=== PATIENT | female | born 1970 | race American Indian/Alaskan Native ===

== ENCOUNTER 2020-07-07 09:25 | Outpatient (CLI) | payer OTHER | END 2020-07-07 09:26 | disposition home or self-care (01) | LOC: SPVWC 09:25 | PROVIDERS: ATTEND Family Medicine | DX: Z12.31 Encounter for screening mammogram for malignant neoplasm of breast (principal) | CPT/HCPCS: 77067 ==

== ENCOUNTER 2021-03-12 11:29 | Emergency (ER) | payer OTHER ==
--- NOTE | 2021-03-12 13:40 | Event Note ---
ED Screening Note Date of service: 03/12/21 Time: 13:39 ED Screening Note: Patient presents with complaints of right arm numbness, shortness of breath, and intermittent slurred speech. She states her symptoms started 4 days ago. She reports associated generalized weakness, dizziness, headache and nausea. Past medical history significant for hypertension and diabetes. This initial assessment/diagnostic orders/clinical plan/treatment(s) is/are subject to change based on patients health status, clinical progression and re- assessment by fellow clinical providers in the ED. Further treatment and workup at subsequent clinical providers discretion. Patient/guardian urged not to elope from the ED as their condition may be serious if not clinically assessed and managed. Initial orders include: Head CT including chest pain order set
[2021-03-12 14:34] LABS: Basophils # (Auto) 0.1 K/mm3 (0.0-0.1); Basophils % (Auto) 1.4 % (0.0-1.8); Eosinophils # (Auto) 0.1 K/mm3 (0.0-0.4); Eosinophils % (Auto) 1.1 % (0.0-4.3); Hematocrit 42.6 % (30.3-42.9); Hemoglobin 14.6 gm/dl (10.1-14.3); Lymphocytes # (Auto) 3.1 K/mm3 (1.2-5.4); Lymphocytes % (Auto) 44.3 % (13.4-35.0); Mean Corpuscular HGB Conc 34 % (30-34); Mean Corpuscular Volume 87 fl (79-97); Monocytes # (Auto) 0.5 K/mm3 (0.0-0.8); Monocytes % (Auto) 6.7 % (0.0-7.3); Platelet Count 362 K/mm3 (140-440); Red Blood Count 4.92 M/mm3 (3.65-5.03); Red Cell Distribution Width 13.6 % (13.2-15.2)
--- NOTE | 2021-03-12 14:41 | XRay Report ---
CHEST 2 VIEWS INDICATION / CLINICAL INFORMATION: Chest Pain. COMPARISON: 06/23/2013 FINDINGS: SUPPORT DEVICES: None. HEART / MEDIASTINUM: No significant abnormality. LUNGS / PLEURA: No significant pulmonary or pleural abnormality. No pneumothorax. ADDITIONAL FINDINGS: No significant additional findings. IMPRESSION: 1. No acute findings. Signer Name: Jeancarlos Ramirez MD Signed: 03/12/2021 2:36 PM Workstation Name: [id number]
[2021-03-12 14:46] LABS: INR 0.93 (0.87-1.13)
[2021-03-12 14:47] LABS: Partial Thromboplastin Time 29.1 Sec. (24.2-36.6)
[2021-03-12 14:49] LABS: Alanine Aminotransferase 19 units/L (7-56); Albumin 4.4 g/dL (3.9-5); BUN/Creatinine Ratio 18; Blood Urea Nitrogen 11 mg/dL (7-17); Calcium 9.6 mg/dL (8.4-10.2); Hemolysis Index 4
--- NOTE | 2021-03-12 15:19 | Cat Scan Report ---
CT head/brain wo con INDICATION / CLINICAL INFORMATION: 51 years Female; Headache/slurred speech/right arm numb SINCE SUNDAY. TECHNIQUE: Routine CT head without contrast. All CT scans at this location are performed using CT dos e reduction for ALARA by means of automated exposure control. COMPARISON: None. FINDINGS: BRAIN / INTRACRANIAL CONTENTS: The brain appears to demonstrate appropriate attenuation for age. The particular system is within normal limits in size and configuration. There is no clear CT evidence of acute intracranial hemorrhage or significant mass effect. ORBITS: No significant abnormality of visualized orbits. SINUSES / MASTOIDS: No significant abnormality in the visualized paranasal sinuses or mastoid air max ls. CRANIOCERVICAL JUNCTION: No significant abnormality. ADDITIONAL FINDINGS: None. IMPRESSION: 1. There is no CT evidence of acute intracranial process. Signer Name: Rohit Rivera MD Signed: 03/12/2021 3:14 PM Workstation Name: [id number]
--- NOTE | 2021-03-12 21:46 | Emergency Department Report ---
ED Neuro Deficit HPI - General Chief Complaint: Neuro Symptoms/Deficit Stated Complaint: BLOOD PRESSURE/RT ARM NUMB/SOB Time Seen by Provider: 03/12/21 17:33 Source: patient Mode of arrival: Ambulatory Limitations: No Limitations - History of Present Illness Initial Comments: Patient is a 51-year-old female who presents emergency room with complaints of headache, dizziness, elevated blood pressure, shortness of breath, nausea, and right arm numbness. Patient states that presents been going on for 4 days. Patient states her symptoms are worsening. Patient states that her blood pressure is continued to go up. Patient states it is more of her diastolic number that is elevated. Patient states that her dizziness, arm numbness, headache and shortness of breath are better with rest and worse with exertion and movement. Patient denies chest pain. Patient denies diaphoresis. Patient denies blurry vision. Patient denies neck stiffness. Patient denies fever and chills. Patient states she is feeling much better than when she arrived. Patient denies slurred speech. Patient denies falls. Patient denies loss of control of her limbs. Patient denies vomiting. Patient states she has a past medical history of hypertension, diabetes, hepat itis, GERD. Patient states she is compliant with most of her blood pressure medication however she missed her Lasix for the last few days because it makes her pee too much and she does not like to take Lasix on days she works.. Patient denies recent travel. Patient denies recent international travel. Patient denies exposure to the novel coronavirus. Patient denies sick contacts. Patient denies fever and chills. Patient denies cough. Patient denies diarrhea. Patient denies coming in contact with anybody with symptoms of the novel coronavirus. -: Sudden History of same: No Place: home Severity: moderate Quality: constant Improves With: rest Worsens With: other On Anticoagulants: No Context: sudden onset Associated Symptoms: headaches, shortness of breath. denies: confusion, chest pain, cough, diaphoresis, fever/chills, loss of appetite, malise, seizures - Related Data Home Medications: Home Medications Medication Instructions Recorded Confirmed Last Taken Lisinopril/Hydrochlorothiazide 1 each PO 06/22/13 06/22/13 06/22/13 [Zestoretic 10-12.5 mg] Previous Rx's Medication Instructions Recorded Last Taken Type Acetaminophen/Codeine [Tylenol #3] 1 tab PO Q4HR PRN #30 tablet 06/28/13 Unknown Rx Ibuprofen [Motrin] 800 mg PO Q8H PRN #20 tablet 02/10/15 Unknown Rx Penicillin Vk [Veetids TAB] 500 mg PO Q8H #30 tablet 02/10/15 Unknown Rx Allergies/Adverse Reactions: Allergies Allergy/AdvReac Type Severity Reaction Status Date / Time No Known Allergies Allergy Verified 02/10/15 15:20 ED Review of Systems ROS: Stated complaint: BLOOD PRESSURE/RT ARM NUMB/SOB Other details as noted in HPI Constitutional: denies: chills, fever Eyes: denies: eye pain, eye discharge, vision change ENT: denies: ear pain, throat pain Respiratory: shortness of breath. denies: cough, wheezing Cardiovascular: denies: chest pain, palpitations Endocrine: no symptoms reported Gastrointestinal: denies: abdominal pain, nausea, diarrhea Genitourinary: denies: urgency, dysuria, discharge Musculoskeletal: denies: back pain, joint swelling, arthralgia Skin: denies: rash, lesions Neurological: as per HPI, headache. denies: weakness, paresthesias Psychiatric: denies: anxiety, depression Hematological/Lymphatic: denies: easy bleeding, easy bruising ED Past Medical Hx - Past Medical History Previous Medical History?: Yes Hx Hypertension: Yes Hx Diabetes: Yes Hx GERD: Yes Hx Liver Disease: Yes (Hepatitis) - Surgical History Past Surgical History?: Yes Hx Cholecystectomy: Yes Additional Surgical History: - Family History Family history: no significant - Social History Smoking Status: Never Smoker Substance Use Type: None - Medications Home Medications: Home Medications Medication Instructions Recorded Confirmed Last Taken Type Lisinopril/Hydrochlorothiazide 1 each PO 06/22/13 06/22/13 06/22/13 History [Zestoretic 10-12.5 mg] Acetaminophen/Codeine [Tylenol #3] 1 tab PO Q4HR PRN #30 tablet 06/28/13 Unknown Rx Ibuprofen [Motrin] 800 mg PO Q8H PRN #20 tablet 02/10/15 Unknown Rx Penicillin Vk [Veetids TAB] 500 mg PO Q8H #30 tablet 02/10/15 Unknown Rx ED Neuro Physical Exam - General Limitations: No Limitations General appearance: alert, in no apparent distress Suspected Stroke: No - Head Head exam: Present: atraumatic, normocephalic - Eye Eye exam: Present: normal appearance, PERRL Pupils: Present: normal accommodation - ENT ENT exam: Present: mucous membranes moist - Neck Neck exam: Present: normal inspection - Respiratory Respiratory exam: Present: normal lung sounds bilaterally. Absent: respiratory distress, wheezes, rales - Cardiovascular Cardiovascular Exam: Present: regular rate, normal rhythm. Absent: systolic murmur, diastolic murmur, rubs, gallop - GI/Abdominal GI/Abdominal exam: Present: soft, normal bowel sounds - Extremities Exam Extremities exam: Present: normal inspection - Back Exam Back exam: Present: normal inspection - Neurological Exam Neurological exam: Present: alert, oriented X3, CN II-XII intact, normal gait - NIHSS Assessment Interval: Baseline 1a. Level of Consciousness: alert/keenly responsive 1b. LOC Questions: answers both correctly 1c. LOC Commands: performs tasks correctly 2. Best Gaze: normal 3. Visual: no visual loss 4. Facial Palsy: normal symmetrical movement 5b. Motor Arm Right: no drift 5a. Motor Arm Left: no drift 6a. Motor Leg Left: no drift 6b. Motor Leg Right: no drift 7. Limb Ataxia: absent 8. Sensory: normal 9. Best Language: no aphasia 10. Dysarthria: normal 11. Extinction/Inattention: no abnormality Total Score: 0 Stroke Severity: No Stroke Symptoms - Psychiatric Psychiatric exam: Present: normal affect, normal mood - Skin Skin exam: Present: warm, dry, intact, normal color. Absent: rash ED Course Vital Signs 03/12/21 03/12/21 03/12/21 12:42 21:21 23:00 Temperature 98.3 F Pulse Rate 81 81 86 Respiratory 14 17 18 Rate Blood Pressure 163/96 Blood Pressure 161/116 149/70 [Right] O2 Sat by Pulse 100 99 100 Oximetry - Reevaluation(s) Reevaluation #1: Patient received clonidine 0.1 mg. Patient states her headache and dizziness are gone. Patient states she is feeling much better. Patient's blood pressure is 149/70. I discussed all results and clinical findings with patient. I discussed plan of care with patient. Patient agrees with plan of care. Patient is stable for discharge. Patient will be discharged home. Patient given discharge instructions. Patient voiced understanding of discharge instructions. 06/12/21 23:06 - Lab Data Result diagrams: 03/12/21 14:11 03/12/21 14:11 Lab Results 03/12/21 03/12/21 03/12/21 Range/Units 14:11 14:11 14:11 WBC 6.9 (4.5-11.0) K/mm3 RBC 4.92 (3.65-5.03) M/mm3 Hgb 14.6 H (10.1-14.3) gm/dl Hct 42.6 (30.3-42.9) % MCV 87 (79-97) fl MCH 30 (28-32) pg MCHC 34 (30-34) % RDW 13.6 (13.2-15.2) % Plt Count 362 (140-440) K/mm3 Lymph % (Auto) 44.3 H (13.4-35.0) % [place] % (Auto) 6.7 (0.0-7.3) % Eos % (Auto) 1.1 (0.0-4.3) % Baso % (Auto) 1.4 (0.0-1.8) % Lymph # (Auto) 3.1 (1.2-5.4) K/mm3 [place] # (Auto) 0.5 (0.0-0.8) K/mm3 Eos # (Auto) 0.1 (0.0-0.4) K/mm3 Baso # (Auto) 0.1 (0.0-0.1) K/mm3 Seg Neutrophils % 46.5 (40.0-70.0) % Seg Neutrophils # 3.2 (1.8-7.7) K/mm3 PT 13.1 (12.2-14.9) Sec. INR 0.93 (0.87-1.13) APTT 29.1 (24.2-36.6) Sec. Sodium 138 (137-145) mmol/L Potassium 4.0 (3.6-5.0) mmol/L Chloride 100.7 (98-107) mmol/L Carbon Dioxide 26 (22-30) mmol/L Anion Gap 15 mmol/L BUN 11 (7-17) mg/dL Creatinine 0.6 (0.6-1.2) mg/dL Estimated GFR > 60 ml/min BUN/Creatinine Ratio 18 % Glucose 105 H (65-100) mg/dL Calcium 9.6 (8.4-10.2) mg/dL Total Bilirubin 0.20 (0.1-1.2) mg/dL AST 17 (5-40) units/L ALT 19 (7-56) units/L Alkaline Phosphatase 81 (35-129) units/L Troponin T < 0.010 (0.00-0.029) ng/mL Total Protein 7.9 (6.3-8.2) g/dL Albumin 4.4 (3.9-5) g/dL Albumin/Globulin Ratio 1.3 % 03/12/21 Range/Units 19:51 WBC (4.5-11.0) K/mm3 RBC (3.65-5.03) M/mm3 Hgb (10.1-14.3) gm/dl Hct (30.3-42.9) % MCV (79-97) fl MCH (28-32) pg MCHC (30-34) % RDW (13.2-15.2) % Plt Count (140-440) K/mm3 Lymph % (Auto) (13.4-35.0) % [place] % (Auto) (0.0-7.3) % Eos % (Auto) (0.0-4.3) % Baso % (Auto) (0.0-1.8) % Lymph # (Auto) (1.2-5.4) K/mm3 [place] # (Auto) (0.0-0.8) K/mm3 Eos # (Auto) (0.0-0.4) K/mm3 Baso # (Auto) (0.0-0.1) K/mm3 Seg Neutrophils % (40.0-70.0) % Seg Neutrophils # (1.8-7.7) K/mm3 PT (12.2-14.9) Sec. INR (0.87-1.13) APTT (24.2-36.6) Sec. Sodium (137-145) mmol/L Potassium (3.6-5.0) mmol/L Chloride (98-107) mmol/L Carbon Dioxide (22-30) mmol/L Anion Gap mmol/L BUN (7-17) mg/dL Creatinine (0.6-1.2) mg/dL Estimated GFR ml/min BUN/Creatinine Ratio % Glucose (65-100) mg/dL Calcium (8.4-10.2) mg/dL Total Bilirubin (0.1-1.2) mg/dL AST (5-40) units/L ALT (7-56) units/L Alkaline Phosphatase (35-129) units/L Troponin T < 0.010 (0.00-0.029) ng/mL Total Protein (6.3-8.2) g/dL Albumin (3.9-5) g/dL Albumin/Globulin Ratio % - EKG Data -: EKG Interpreted by Me EKG shows normal: sinus rhythm, axis, intervals, QRS complexes, ST-T waves Rate: normal - Radiology Data Radiology results: report reviewed, image reviewed interpreted by me: Chest x-ray: No pneumonia, no pneumothorax, no foreign body, no osseous findings, no acute findings CT head/brain wo con INDICATION / CLINICAL INFORMATION: 51 years Female; Headache/slurred speech/right arm numb SINCE SUNDAY. TECHNIQUE: Routine CT head without contrast. All CT scans at this location are performed using CT dose reduction for ALARA by means of automated exposure control. COMPARISON: None. FINDINGS: BRAIN / INTRACRANIAL CONTENTS: The brain appears to demonstrate appropriate attenuation for age. The particular system is within normal limits in size and configuration. There is no clear CT evidence of acute intracranial hemorrhage or significant mass effect. ORBITS: No significant abnormality of visualized orbits. SINUSES / MASTOIDS: No significant abnormality in the visualized paranasal sinuses or mastoid air cells. CRANIOCERVICAL JUNCTION: No significant abnormality. ADDITIONAL FINDINGS: None. IMPRESSION: 1. There is no CT evidence of acute intracranial process. CHEST 2 VIEWS INDICATION / CLINICAL INFORMATION: Chest Pain. COMPARISON: 06/23/2013 FINDINGS: SUPPORT DEVICES: None. HEART / MEDIASTINUM: No significant abnormality. LUNGS / PLEURA: No significant pulmonary or pleural abnormality. No pneumothorax. ADDITIONAL FINDINGS: No significant additional findings. IMPRESSION: 1. No acute findings. - Medical Decision Making Patient is a 51-year-old female that presents emergency room with complaints of dizziness, headache, elevated blood pressure. Patient also complained of numbness of the right arm. Patient found to have elevated blood pressure in the ER. Patient was given 0.1 mg of clonidine and her blood pressure improved and all of her symptoms resolved. After clonidine, the patient denied chest pain, shortness of breath, arm numbness, nausea, dizziness, headache. Patient res ponded well to treatment. Patient had labs done which were essentially unremarkable. Patient had chest x-ray which was negative for acute finding. Patient had an EKG done which showed normal ST segments. I personally reviewed the EKG and the chest x-ray. Patient had a head CT and it was negative for acute findings. Patient had labs and patient's labs were essentially unremarkable. Patient's troponin was negative x2. At this time patient is stable to be followed as an outpatient. Patient does not require further emergency medical services. Patient does not require inpatient services. Patient is stable for discharge. Patient will be discharged home. - Differential Diagnosis SOB, dizziness, headache, elevated blood pressure, right arm numbness Critical care attestation.: If time is entered above; I have spent that time in minutes in the direct care of this critically ill patient, excluding procedure time. ED Disposition Clinical Impression: Noncompliance with medication regimen, Dizziness, Shortness of breath Hypertension Qualifiers: Hypertension type: essential hypertension Qualified Code(s): I10 - Essential (primary) hypertension Headache Qualifiers: Headache type: unspecified Headache chronicity pattern: acute headache Intractability: not intractable Qualified Code(s): R51.9 - Headache, unspecified Disposition: DC-01 TO HOME OR SELFCARE Is pt being admited?: No Does the pt Need Aspirin: No Condition: Stable Instructions: Shortness of Breath, Adult, [id number], Hypertension During , [id number], Preventing Hypertension, Dizziness, [id number], Hypertension (ED) Additional Instructions: Patient to follow-up with primary care in 2 to 3 days. Patient to follow-up with cardiology and neurology in 2 to 3 days. Patient to take an 81 mg aspirin daily. Patient to rest. Patient to increase water. Patient to avoid strenuous exercise or heavy lifting until cleared by cardiology and neurology. Patient to take Tylenol or ibuprofen as needed for pain. Patient to take all blood pressure medications. Patient to restart Lasix. Patient to monitor blood pressure at home. Patient to keep a blood pressure log. Patient to take blood pressure log to all follow-up appointments. Patient to return to the ER if condition worsens, changes or new symptoms arise. Referrals: PRIMARY CAREMD [Primary Care Provider] - 2-3 Days BHARATHI KING MD [Staff Physician] - 2-3 Days TATI ISIDRO MD [Staff Physician] - 2-3 Days Time of Disposition: 23:10
[2021-03-12] MEDS ORDERED: cloNIDine 0.1 MG TAB PO ONE (21:47)
[2021-03-12 23:07] VITALS: BP 149/70
--- NOTE | 2021-03-17 12:51 | Electrocardiograph Report ---
[facility] Test Date: 2021-03-12 Test Time: 13:41:42 Pat Name: SAM DEE Department: Room: Gender: F Commodity Manager: MIRIAN : 1970 Requested By: ANGELICA FITCH Order Number: [id number] Reading MD: Екатерина Nuñez Measurements Intervals [place] Rate: 80 P: 50 NJ: 139 QRS: 66 QRSD: 71 T: 62 QT: 359 QTc: 414 Interpretive Statements Sinus rhythm No previous ECG available for comparison Electronically Signed On 03-17-2021 12:51:26 EDT by Екатерина Nuñez
== END 2021-03-12 23:32 | disposition home or self-care (01) ==
LOC: ED 11:29
DX: I10 Essential (primary) hypertension (principal); R42 Dizziness and giddiness; R51.9 Headache, unspecified; R06.02 Shortness of breath; E11.9 Type 2 diabetes mellitus without complications; K21.9 Gastro-esophageal reflux disease without esophagitis; Z90.49 Acquired absence of other specified parts of digestive tract; Z79.899 Other long term (current) drug therapy; Z98.890 Other specified postprocedural states; Z91.14 Patient's other noncompliance with medication regimen
CPT/HCPCS: 36415; 70450; 71046; 80053; 84484; 85025; 85610; 85730; 93005